=== PATIENT | female | born 1935 | race Caucasian/White ===

== ENCOUNTER 2020-05-23 12:37 | Emergency (ER) | payer MEDICARE, OTHER ==
[~2020-05-23 12:37] MED LIST: ALTACE10 MG PO; FLEXERIL 10 MG10 MG PO; IBUPROFEN600 MG PO; KEFLEX CAP 500500 MG PO; KEFLEX500 MG PO; LIPITOR TAB 2020 MG PO; MECLIZINE HCL25 MG PO; MEGACE 400400 MG/10 PO; OCUVITE PO; PERCOCET 5/325 T1 EA PO; PROTONIX40 MG PO; SYNTHROID100 MCG PO; SYNTHROID88 MCG PO; TYLENOL 500 MG500 MG PO; UNITHROID88 MCG PO; VENTOLIN HFA 66.7 GM INH; VITAMIN B-121000 MCG PO; ZANTAC150 MG PO
[2020-11-19] MEDS ORDERED: SYNTHROID112 MCG PO (10:56)
[2020-11-19] MEDS ORDERED: ARICEPT5 MG PO (10:58)
[2020-11-19] MEDS ORDERED: KLONOPIN TAB 00.5 MG PO (10:58)
[2020-11-19] MEDS ORDERED: BUSPIRONE HCL5 MG PO (10:59)
[2020-11-19] MEDS ORDERED: GALANTAMINE HBR8 MG PO (10:59)
[2020-11-19] MEDS ORDERED: SEROQUEL25 MG PO (11:00)
[2020-11-19] MEDS ORDERED: CAPLYTA42 MG PO (11:00)
[2020-11-19] MEDS ORDERED: LIPITOR10 MG PO (22:37)
== END 2020-05-23 17:55 | disposition home or self-care (01) ==
LOC: ER1 12:37
DX: S13.9XXA Sprain of joints and ligaments of unspecified parts of neck, initial encounter (principal); R51.9 Headache, unspecified; I10 Essential (primary) hypertension; X50.9XXA Other and unspecified overexertion or strenuous movements or postures, initial encounter
CPT/HCPCS: 70450; 72125; 99284

== ENCOUNTER 2020-06-01 12:43 | Emergency (ER) | payer MEDICARE, OTHER ==
[2020-06-01 14:50] LABS: HEMOGLOBIN 12.1 gm/dl (12.3-15.3); RED BLOOD COUNT 3.84 M/UL (4.00-5.10); WHITE BLOOD COUNT 8.6 K/UL (4.5-11.0)
[2020-06-01 15:21] LABS: BUN/CREATININE RATIO 18 (0-10)
[2020-11-19] MEDS ORDERED: SYNTHROID112 MCG PO (10:56)
[2020-11-19] MEDS ORDERED: ARICEPT5 MG PO (10:58)
[2020-11-19] MEDS ORDERED: KLONOPIN TAB 00.5 MG PO (10:58)
[2020-11-19] MEDS ORDERED: BUSPIRONE HCL5 MG PO (10:59)
[2020-11-19] MEDS ORDERED: GALANTAMINE HBR8 MG PO (10:59)
[2020-11-19] MEDS ORDERED: SEROQUEL25 MG PO (11:00)
[2020-11-19] MEDS ORDERED: CAPLYTA42 MG PO (11:00)
[2020-11-19] MEDS ORDERED: LIPITOR10 MG PO (22:37)
== END 2020-06-01 16:36 | disposition home or self-care (01) ==
LOC: ER1 12:43
PROVIDERS: Family Medicine
DX: I10 Essential (primary) hypertension (principal); R51.9 Headache, unspecified; F03.90 Unspecified dementia, unspecified severity, without behavioral disturbance, psychotic disturbance, mood disturbance, and anxiety; Z91.81 History of falling; E78.5 Hyperlipidemia, unspecified
CPT/HCPCS: 70450; 80053; 82550; 82553; 82962; 83735; 83874; 84439; 84443; 84484; 85025; 93005; 99284

== ENCOUNTER 2020-06-20 15:02 | Emergency (ER) | payer MEDICARE, OTHER ==
[2020-06-20] MEDS ORDERED: HYDROCODON-ACE1 EAC4 PO (17:21)
[2020-11-19] MEDS ORDERED: SYNTHROID112 MCG PO (10:56)
[2020-11-19] MEDS ORDERED: ARICEPT5 MG PO (10:58)
[2020-11-19] MEDS ORDERED: KLONOPIN TAB 00.5 MG PO (10:58)
[2020-11-19] MEDS ORDERED: BUSPIRONE HCL5 MG PO (10:59)
[2020-11-19] MEDS ORDERED: GALANTAMINE HBR8 MG PO (10:59)
[2020-11-19] MEDS ORDERED: CAPLYTA42 MG PO (11:00)
[2020-11-19] MEDS ORDERED: SEROQUEL25 MG PO (11:00)
[2020-11-19] MEDS ORDERED: LIPITOR10 MG PO (22:37)
== END 2020-06-20 17:26 | disposition home or self-care (01) ==
LOC: ER1 15:02
DX: S60.221A Contusion of right hand, initial encounter (principal); I10 Essential (primary) hypertension; W01.10XA Fall on same level from slipping, tripping and stumbling with subsequent striking against unspecified object, initial encounter; Y92.009 Unspecified place in unspecified non-institutional (private) residence as the place of occurrence of the external cause
CPT/HCPCS: 29125; 73110; 73130; 99283

== ENCOUNTER 2020-06-23 20:43 | Observation (INO) | payer MEDICARE, OTHER ==
[~2020-06-23] VITALS: Ht 157.5 cm; Wt 44.9 kg
[~2020-06-23 20:43] MED LIST changes: +HYDROCODON-ACE1 EAC4 PO
[2020-06-23 21:41] LABS: HEMOGLOBIN 12.6 gm/dl (12.3-15.3); RED BLOOD COUNT 3.95 M/UL (4.00-5.10); WHITE BLOOD COUNT 10.4 K/UL (4.5-11.0)
[2020-06-23 21:55] LABS: BUN/CREATININE RATIO 19 (0-10)
[2020-06-24 05:29] LABS: HEMOGLOBIN 11.7 gm/dl (12.3-15.3); RED BLOOD COUNT 3.73 M/UL (4.00-5.10)
[2020-06-24 05:58] LABS: BUN/CREATININE RATIO 18 (0-10)
[2020-06-24] MEDS ORDERED: KLONOPIN0.5 MG PO (08:07)
[2020-06-24] MEDS ORDERED: COZAAR100 MG PO (08:14)
[2020-06-24] MEDS ORDERED: GALANTAMINE HBR8 MG PO (08:17)
[2020-06-24] MEDS ORDERED: DONEPEZIL HCL5 MG PO (08:18)
[2020-06-24] MEDS ORDERED: PROPRANOLOL HCL10 MG PO (08:18)
[2020-06-24] MEDS ORDERED: SERTRALINE HCL50 MG PO (08:19)
[2020-06-25 03:48] LABS: BUN/CREATININE RATIO 16 (0-10)
[2020-06-26 03:15] LABS: HEMOGLOBIN 12.2 gm/dl (12.3-15.3); RED BLOOD COUNT 3.92 M/UL (4.00-5.10); WHITE BLOOD COUNT 7.3 K/UL (4.5-11.0)
[2020-06-26] MEDS ORDERED: COZAAR 25MG TAB25 MG PO (14:03)
[2020-06-26] MEDS ORDERED: OMNICEF 300 MG300 MG PO (14:05)
[2020-06-26] MEDS ORDERED: COZAAR100 MG PO (17:25)
[2020-06-26] MEDS ORDERED: PROPRANOLOL HCL10 MG PO (17:25)
[2020-11-19] MEDS ORDERED: SYNTHROID112 MCG PO (10:56)
[2020-11-19] MEDS ORDERED: ARICEPT5 MG PO (10:58)
[2020-11-19] MEDS ORDERED: KLONOPIN TAB 00.5 MG PO (10:58)
[2020-11-19] MEDS ORDERED: GALANTAMINE HBR8 MG PO (10:59)
[2020-11-19] MEDS ORDERED: BUSPIRONE HCL5 MG PO (10:59)
[2020-11-19] MEDS ORDERED: CAPLYTA42 MG PO (11:00)
[2020-11-19] MEDS ORDERED: SEROQUEL25 MG PO (11:00)
[2020-11-19] MEDS ORDERED: LIPITOR10 MG PO (22:37)
== END 2020-06-26 18:38 | disposition home or self-care (01) ==
LOC: ER1 20:43 → CDU 23:10 → MED SURG 4 23:10
PROVIDERS: Family Medicine; Internal Medicine Infectious Disease; Physician Assistant; ADMIT Internal Medicine
DX: L03.113 Cellulitis of right upper limb (principal); D64.9 Anemia, unspecified; F03.90 Unspecified dementia, unspecified severity, without behavioral disturbance, psychotic disturbance, mood disturbance, and anxiety; E89.0 Postprocedural hypothyroidism; I10 Essential (primary) hypertension; M54.2 Cervicalgia; E78.5 Hyperlipidemia, unspecified; K21.9 Gastro-esophageal reflux disease without esophagitis; M62.838 Other muscle spasm; Z20.822 Contact with and (suspected) exposure to COVID-19; Z98.890 Other specified postprocedural states; Z82.49 Family history of ischemic heart disease and other diseases of the circulatory system; Z79.899 Other long term (current) drug therapy
CPT/HCPCS: 36415; 73130; 73201; 80048; 80053; 80061; 80202; 82607; 83605; 84443; 84550; 85025; 85027; 85610; 86140; 87040; 96365; 96366; 96367; 96372; 96375; 96376; 97116-GP-CQ; 97161; 97530-GP-CQ; 99285; G0378; J0360; J1650; J2543; J3370; J7030; J7070; Q9967; U0002

== ENCOUNTER 2020-06-28 18:22 | Emergency (ER) | payer MEDICARE, OTHER ==
[~2020-06-28 18:22] MED LIST changes: +COZAAR 25MG TAB25 MG PO; +COZAAR100 MG PO; +DONEPEZIL HCL5 MG PO; +GALANTAMINE HBR8 MG PO; +KLONOPIN0.5 MG PO; +OMNICEF 300 MG300 MG PO; +PROPRANOLOL HCL10 MG PO; +SERTRALINE HCL50 MG PO
[2020-06-28 19:19] LABS: BUN/CREATININE RATIO 24 (0-10)
[2020-06-28 19:25] LABS: RED BLOOD COUNT 4.15 M/UL (4.00-5.10)
[2020-06-28 19:26] LABS: WHITE BLOOD COUNT 9.4 K/UL (4.5-11.0)
[2020-11-19] MEDS ORDERED: SYNTHROID112 MCG PO (10:56)
[2020-11-19] MEDS ORDERED: KLONOPIN TAB 00.5 MG PO (10:58)
[2020-11-19] MEDS ORDERED: ARICEPT5 MG PO (10:58)
[2020-11-19] MEDS ORDERED: GALANTAMINE HBR8 MG PO (10:59)
[2020-11-19] MEDS ORDERED: BUSPIRONE HCL5 MG PO (10:59)
[2020-11-19] MEDS ORDERED: CAPLYTA42 MG PO (11:00)
[2020-11-19] MEDS ORDERED: SEROQUEL25 MG PO (11:00)
[2020-11-19] MEDS ORDERED: LIPITOR10 MG PO (22:37)
== END 2020-06-28 20:37 | disposition other institution (70) ==
LOC: ER1 18:22
PROVIDERS: Preventive Medicine Occupational Medicine
DX: F03.90 Unspecified dementia, unspecified severity, without behavioral disturbance, psychotic disturbance, mood disturbance, and anxiety (principal)
CPT/HCPCS: 36415; 71045; 80053; 82550; 82553; 83874; 84484; 85025; 93005; 99284

== ENCOUNTER 2020-07-08 11:39 | Observation (INO) | payer MEDICARE, OTHER ==
[~2020-07-08] VITALS: Ht 165.1 cm; Wt 49.9 kg
[2020-07-08 12:27] LABS: HEMOGLOBIN 12.9 gm/dl (12.3-15.3); RED BLOOD COUNT 4.05 M/UL (4.00-5.10); WHITE BLOOD COUNT 7.9 K/UL (4.5-11.0)
[2020-07-08 13:06] LABS: BUN/CREATININE RATIO 15 (0-10)
[2020-07-08] MEDS ORDERED: KLONOPIN0.5 MG PO (22:39)
[2020-07-08] MEDS ORDERED: ACETAMINOPHEN500 MG PO (22:42)
[2020-07-09 05:24] LABS: WHITE BLOOD COUNT 8.1 K/UL (4.5-11.0)
[2020-07-09 05:52] LABS: BUN/CREATININE RATIO 17 (0-10)
[2020-07-09 05:55] LABS: RED BLOOD COUNT 3.55 M/UL (4.00-5.10)
[2020-07-10 03:43] LABS: HEMOGLOBIN 10.9 gm/dl (12.3-15.3); RED BLOOD COUNT 3.47 M/UL (4.00-5.10); WHITE BLOOD COUNT 7.1 K/UL (4.5-11.0)
[2020-07-10] MEDS ORDERED: DONEPEZIL HCL5 MG PO (11:28)
[2020-11-19] MEDS ORDERED: SYNTHROID112 MCG PO (10:56)
[2020-11-19] MEDS ORDERED: ARICEPT5 MG PO (10:58)
[2020-11-19] MEDS ORDERED: KLONOPIN TAB 00.5 MG PO (10:58)
[2020-11-19] MEDS ORDERED: BUSPIRONE HCL5 MG PO (10:59)
[2020-11-19] MEDS ORDERED: GALANTAMINE HBR8 MG PO (10:59)
[2020-11-19] MEDS ORDERED: SEROQUEL25 MG PO (11:00)
[2020-11-19] MEDS ORDERED: CAPLYTA42 MG PO (11:00)
[2020-11-19] MEDS ORDERED: LIPITOR10 MG PO (22:37)
== END 2020-07-10 15:05 | disposition home or self-care (01) ==
LOC: ER1 11:39 → MED SURG 4 17:04 → CDU 17:04 → MED SURG 4 21:35
PROVIDERS: Family Medicine; Physician Assistant; ADMIT Internal Medicine Infectious Disease
DX: F03.90 Unspecified dementia, unspecified severity, without behavioral disturbance, psychotic disturbance, mood disturbance, and anxiety (principal); E89.0 Postprocedural hypothyroidism; I10 Essential (primary) hypertension; E78.5 Hyperlipidemia, unspecified; D64.9 Anemia, unspecified; K21.9 Gastro-esophageal reflux disease without esophagitis; R07.89 Other chest pain; Z20.822 Contact with and (suspected) exposure to COVID-19; Z82.49 Family history of ischemic heart disease and other diseases of the circulatory system; Z83.3 Family history of diabetes mellitus; Z79.899 Other long term (current) drug therapy
CPT/HCPCS: 36415; 70450; 71045; 72125; 80048; 80053; 80307; 81001; 82140; 82550; 82553; 83874; 84439; 84443; 84484; 85025; 87086; 93005; 96365; 96376; 99285; G0378; G0480; J0696; U0002

== ENCOUNTER 2020-07-13 11:49 | Emergency (ER) | payer MEDICARE, OTHER ==
[~2020-07-13 11:49] MED LIST changes: +ACETAMINOPHEN500 MG PO
[2020-11-19] MEDS ORDERED: SYNTHROID112 MCG PO (10:56)
[2020-11-19] MEDS ORDERED: ARICEPT5 MG PO (10:58)
[2020-11-19] MEDS ORDERED: KLONOPIN TAB 00.5 MG PO (10:58)
[2020-11-19] MEDS ORDERED: GALANTAMINE HBR8 MG PO (10:59)
[2020-11-19] MEDS ORDERED: BUSPIRONE HCL5 MG PO (10:59)
[2020-11-19] MEDS ORDERED: SEROQUEL25 MG PO (11:00)
[2020-11-19] MEDS ORDERED: CAPLYTA42 MG PO (11:00)
[2020-11-19] MEDS ORDERED: LIPITOR10 MG PO (22:37)
== END 2020-07-13 17:22 | disposition home or self-care (01) ==
LOC: ER1 11:49
DX: F03.90 Unspecified dementia, unspecified severity, without behavioral disturbance, psychotic disturbance, mood disturbance, and anxiety (principal); E78.5 Hyperlipidemia, unspecified; I10 Essential (primary) hypertension; K21.9 Gastro-esophageal reflux disease without esophagitis; E03.9 Hypothyroidism, unspecified
CPT/HCPCS: 99283

== ENCOUNTER 2020-08-08 10:05 | Observation (INO) | payer MEDICARE ==
[~2020-08-08] VITALS: Ht 154.9 cm; Wt 49.9 kg
[2020-08-08 10:45] LABS: HEMOGLOBIN 10.5 gm/dl (12.3-15.3); RED BLOOD COUNT 3.31 M/UL (4.00-5.10); WHITE BLOOD COUNT 5.6 K/UL (4.5-11.0)
[2020-08-08 11:00] LABS: BUN/CREATININE RATIO 20 (0-10)
[2020-08-10] MEDS ORDERED: COZAAR 25MG TAB25 MG PO (13:40)
[2020-08-10] MEDS ORDERED: MULTI-VITAMIN1 EACH PO (13:41)
[2020-08-10] MEDS ORDERED: ADVIL200 M1 PO (13:41)
[2020-08-12 13:05] LABS: HEMOGLOBIN 11.7 gm/dl (12.3-15.3); RED BLOOD COUNT 3.62 M/UL (4.00-5.10); WHITE BLOOD COUNT 6.1 K/UL (4.5-11.0)
[2020-08-12 13:33] LABS: BUN/CREATININE RATIO 22 (0-10)
[2020-08-14 06:02] LABS: HEMOGLOBIN 10.5 gm/dl (12.3-15.3); RED BLOOD COUNT 3.32 M/UL (4.00-5.10); WHITE BLOOD COUNT 5.3 K/UL (4.5-11.0)
[2020-08-14 06:36] LABS: BUN/CREATININE RATIO 21 (0-10)
--- NOTE | 2020-08-14 17:57 | NUR ---
patient has been crying r/t wanting to go home with her . visited patient and had a good interaction with the patient. patient get agitated at times with her but eventually stop the agitation. nurse stayed with patient for few minutes and kept her company and patient calm and content at this time
--- NOTE | 2020-08-17 11:21 | NUR ---
PATIENT IS ALERT AND ORIENTED TODAY. ANSWERS ALL QUESTIONS APPROPRIATELY. SHE KNOWS HER NAME, BIRTHDAY, DATE, WHERE SHE LIVES, WHAT THE YEAR DAY AND MONTH IS, WHO THE PRESIDENT IS. NO CONFUSION NOTED. PATIENT IS HARD OF HEARING BECAUSE HEARING AID BATTERIES ARE ALMOST AND REQUIRES A LOUD VOICE BEFORE SHE UNDERSTANDS THE PERSON SPEAKING TO HER. CALLED THE TO BRING HER NEW BATTERIES FOR HER HEARING AID. UPON ARRIVAL THE ENTERED THE PATIENTS ROOM AND SAT WITH THE PATIENT BY THE WINDOW. DR. GIBBS ENTERED THE ROOM TO EVALUATE THE PATIENT TODAY IN THE PRESENCE OF THE . WHILE HE WAS ASSESSING THE PATIENT SHE STATED "I FEEL FINE I SLEPT GOOD LAST NIGHT AND NOTHING IS WRONG WITH ME I JUST WANT TO GO BACK HOME AND DO WHAT I LIKE TO DO EVERY DAY AND BE WITH MY PETS." DR. GIBBS ASKED THE IF HE THINKS SHE IS BETTER TODAY THAN THE PREVIOUS DAY. HE STATES "NO SHE IS NOT BETTER TODAY SHE IS WORSE TODAY THAN SHE WAS YESTERDAY ASIDE FROM IT TAKING 5 PEOPLE TO GET HER OFF OF ME YESTERDAY BECAUSE SHE BECAME SO HOSTILE WHEN I CAME TO VISIT HER. SHE CANNOT COME HOME" DR. GIBBS AND MYSELF WERE PRESENT YESTERDAY WHEN THE SITUATION HE IS REFERRING TO HAPPENED. THERE IS A SEPARATE NOTE ABOUT THIS INCIDENT. THE HAS HUGELY EXAGGERATED THE EVENTS THAT TOOK PLACE. THE PATIENT WAS NOT HELD BACK FROM HIM. SHE WAS NEVER HOSTILE. SHE WAS VISIBLY UPSET, BUT ONLY CRYING BECAUSE OF THE SITUATION SHE IS IN HAS GREATLY UPSET HER. THERE WAS NO COMBATIVENESS OR ISSUES OF VIOLENCE THAT TOOK PLACE. TODAY THE WAS CAUGHT TELLING THE PATIENT "THEY ARE GOING TO SHINE LAZERS ON YOUR HEAD WEDNESDAY AND THAT IS WHY I CANT TAKE YOU HOME. THEY DONT DO THE LAZERS ON THE WEEKEND SO YOU WILL HAVE TO WAIT UNTIL WEDNESDAY TO DO IT." HE ALSO ALSO BEEN TELLING THE TECH ABOUT IT TAKING MULTIPLE PEOPLE TO PULL HER OFF OF HIM YESTERDAY, BUT NOTED ABOVE THIS IS NOT TRUE. THE PATIENT WAS NEVER HOSTILE. THE PATIENT STATED TO HER " WHY DO YOU SAY THINGS TO MAKE ME THINK THAT IM CRAZY" DR. GIBBS IS ORDERING A COGNITIVE EVALUATION ON THE PATIENT TO RULE OUT ANY COGNITIVE IMPAIRMENTS WITH THE PATIENT. NO IMPAIRMENTS ARE VISIBLY NOTED AT THIS TIME OTHER THAN LOSS OF HEARING.
--- NOTE | 2020-08-17 11:37 | NUR ---
THIS ENTRY IS NOTED FOR August AT 1200. THE PATIENT WAS UPSET AND CRYING WANTING TO GO HOME. SHE WAS AWAITING ASSISTED PLACEMENT PER CASE MANAGEMENT. THE PATIENT DOES NOT WANT TO GO TO A ASSISTED AND DID NOT KNOW THIS WAS EVEN THE PLAN FOR HER. SHE WANTS TO "GO BACK HOME TO BE WITH HER PETS" THE PATIENT IS ALERT AND ORIENTED AND AWARE OF ALL OF HER SURROUNDS. THERE IS NO CONFUSION NOTED. SHE IS IN SOUND MIND AT THIS MOMENT IN TIME. THIS WAS VOICED TO DR. GIBBS THAT SHE WANTED TO GO HOME AND NOT TO A ASSISTED. HE EVALUATED THE PATIENT AND DETERMINED THAT SHE IS IN HER RIGHT MIND AND IS NOT CONFUSED. THE PATIENT WAS GOING TO BE DISCHARGED HOME UNTIL THE CAME AND WE TOLD THIS TO HIM. HE SAYS "HE IS NOT TAKING HER HOME SHE TRIED TO BEAT ME WITH A HAMMER" HE PROCEEDS TO SHOW US A MINISCULE SCRATCH ON HIS LEG. THE SAYS "I HAVE PAPERS ON HER THAT SAYS I DECIDE WHAT SHE DOES AND I WANT HER IN A ASSISTED" THE PATIENT WAS CRYING SO HARD AND SO UPSET THAT SHE FAINTED AND WE HAD TO MOVE HER TO THE BED. THE PRESENTED US WITH THE PAPERS AND A COPY WAS PLACED IN THE CHART. THE HOUSE MACHINE ETCHER AND CASE MANAGEMENT HAD TO GET INVOLVED. BECAUSE THE IS LEGAL GUARDIAN TH PATIENT HAD TO STAY ANOTHER NIGHT. THE PATIENT WAS NEVER HOSTILE UPON THE HUSBANDS VISITATION, SHE WAS ONLY VISIBLY UPSET AND CRYING. SHE NEVER LASHED OUT AT THE OR ANY STAFF. BECAUSE THE PATIENT WANTED TO LEAVE BUT COULD NOT LEAVE WE HAD TO GET A SITTER FOR HER SO SHE WOULD NOT ELOPE. WE CALLED THE DAUGHTER AND SHE IS NOT WILLING TO TAKE HER HOME WITH HER. THE PATIENT STATES "HE HAS ALWAYS CHEATED ON ME THAT MUST BE WHY HE IS DOING THIS TO ME" ACCOUNTING CONSULTANT SAID WE ARE GETTING AN ETHICS COMMITTEE INVOLVED IN THIS SITUATION. THE PATIENT HAS NOTHING MEDICALLY WRONG AT THIS CURRENT MOMENT.
--- NOTE | 2020-08-17 18:08 | NUR ---
PATIENT WAS OLAP EVALUATED AND THE CISTERN ROOM OPERATOR HAS CLEARED THE PATIENT TO GO HOME PENDING WHAT IS TO BECOME OF THE LEGAL GUARDIANSHIP FROM HER . PATIENT IS STILL ALERT AND ORIENTED. NO CONFUSION NOTED. NO AGITATION NOTED. THE EVALUATION PAPERS FROM [facility] ARE IN THE CHART. PER THE CISTERN ROOM OPERATOR SHE SHOULD CONTINUE TO SEE PRIMARY CARE PROVIDER TO TAKE CARE OF HEALTH NEEDS OTHERWISE THERE IS NO REASON SHE CANNOT TAKE CARE OF HERSELF AT HOME.
--- NOTE | 2020-08-19 10:37 | NUR ---
NO S/SX OF CONFUSION AT THIS TIME, AMBULATORY, ANSWER APPROPRIATELY WHEN SPOKEN TO.
[2020-08-24 08:24] LABS: HEMOGLOBIN 11.8 gm/dl (12.3-15.3); RED BLOOD COUNT 3.76 M/UL (4.00-5.10); WHITE BLOOD COUNT 6.9 K/UL (4.5-11.0)
--- NOTE | 2020-08-26 13:03 | NUR ---
PT WAS CRYING AND FRUSTRATED THAT SHE DID NOT HAVE ANY FAMILY THAT WOULD COME AND GET HER FROM THE HOSPITAL. PT REPORTED THAT HER HEAD WAS HURTING AND I ASKED ALE TO CHECK HER BLOOD PRESSURE. THE PT'S BLOOD PRESSURE WAS 178/110 AND A PRN APRESOLINE 5MG WAS ADMINISTERED THROUGH THE PT'S IV. WILL CONTINUE TO MONITOR. PT IS NOW CALM AND SITTING ON THE SIDE OF THE BED TALKING WITH ALE.
--- NOTE | 2020-09-02 20:08 | NUR ---
APPROX. 1949: EXPLAINED TO PT THAT SHE WAS BEING MOVED TO ANOTHER ROOM. PT IMMEDIATELY FREAKED OUT AND WENT INTO THE BATHROOM. PT BEGAN TO CRY, SCREAM AND REFUSE TO BE TAKEN TO A NEW ROOM. PT WOULD NOT COOPERATE AT ALL. I ALONG WITH THE SITTER (AICHA) TRIED TO CALM PT DOWN. I CALLED THE PT'S TO SEE IF HE COULD GET HER TO AGREE TO BEING MOVED. SPOKE WITH PT ON THE PHONE, BUT PT WAS STILL VERY UPSET AND UNCOOPERATIVE. ALL ATTEMPS WERE UNSUCCESFUL. APPROX. 2007: NOTIFIED FINAL INSPECTOR MOTORCYLES OF CURRENT SITUATION. PT WAS CONFUSED AND STILL REFUSING TO BE MOVED. PT WAS CRYING AND VERY UPSET. FINAL INSPECTOR MOTORCYLES (BRYON) STATED THAT THE PT COULD STAY IN HER CURRENT ROOM.
[2020-09-03 13:02] LABS: HEMOGLOBIN 12.1 gm/dl (12.3-15.3); RED BLOOD COUNT 3.7 M/UL (4.00-5.10)
--- NOTE | 2020-09-07 10:59 | NUR ---
PATIENT RECEIVED HIMANSHU COVID 19 VACCINE IN LEFT DELTOID VIA [facility] DEPT NURSE. AT BEDSIDE, CONSENT GIVEN PRIOR TO INJECTION ADMISTRATION. PT TOLERAING INJECTION WELL WITH NO ADVERSE REACTIONS NOTED AT THIS TIME.
[2020-09-08] MEDS ORDERED: QUETIAPINE FUMA25 MG PO ×2 (19:15)
[2020-09-09 07:08] LABS: HEMOGLOBIN 11.7 gm/dl (12.3-15.3); RED BLOOD COUNT 3.63 M/UL (4.00-5.10); WHITE BLOOD COUNT 6.4 K/UL (4.5-11.0)
[2020-09-13] MEDS ORDERED: QUETIAPINE FUMA25 MG PO ×2 (08:52)
[2020-09-13] MEDS ORDERED: ATIVAN 1MG TABLE1 MG PO (08:52)
--- NOTE | 2020-09-13 15:19 | NUR ---
PATIENT IS CURSING AND SCREAMING AT STAFF THAT SHE IS READY TO GO HOME. PATIENT IS RUNNING OUT OF ROOM AND INTO HALLWAY. PATIENT IS BECOMING ANGRY AND COMBATIVE, AND IS BANGING HER ARMS AGAINST BED, العراقي, AND COUCH. NOTIFIED DR. ZARATE, THIS NURSE BELIEVES PATIENT MAY BE A DANGER TO HERSELF OR OTHERS. DR. ZARATE IS ADDING ORDERS TO CPOE.
[2020-09-15 15:36] LABS: BUN/CREATININE RATIO 27 (0-10)
--- NOTE | 2020-09-16 12:13 | NUR ---
PATIENT HAS NOT HAD A SITTER SINCE DAYSHIFT ON 09/13/20.
--- NOTE | 2020-09-16 14:09 | NUR ---
1410: PATIENT WILL NOT STAY IN HER ROOM; STAFF HAS FOUND HER IN A CHAIR IN THE SHOWER AND INSIDE THE CLOSET IN HER ROOM. SHE HAS WONDERED ABOUT THE UNIT ALL DAY, DEMANDING TO GO HOME, ASKING FOR THE POLICE TO BE MADE AWARE THAT SHE IS BEIBG HELD AGAINST HER WILL. PATINET GETTING VERY AGITATED AT TIMES SLAMMING ROOM DOOR AFTER BEING INFORMED OF NOT BEING ABLE TO BE DISCHARGE TODAY OR TOMORROW. UNABLE TO REASON WITH PATIENT ON A RATIONAL BASIS.
[2020-09-18 18:45] LABS: HEMOGLOBIN 12.3 gm/dl (12.3-15.3); RED BLOOD COUNT 3.71 M/UL (4.00-5.10); WHITE BLOOD COUNT 8.1 K/UL (4.5-11.0)
[2020-11-19] MEDS ORDERED: SYNTHROID112 MCG PO (10:56)
[2020-11-19] MEDS ORDERED: KLONOPIN TAB 00.5 MG PO (10:58)
[2020-11-19] MEDS ORDERED: ARICEPT5 MG PO (10:58)
[2020-11-19] MEDS ORDERED: GALANTAMINE HBR8 MG PO (10:59)
[2020-11-19] MEDS ORDERED: BUSPIRONE HCL5 MG PO (10:59)
[2020-11-19] MEDS ORDERED: SEROQUEL25 MG PO (11:00)
[2020-11-19] MEDS ORDERED: CAPLYTA42 MG PO (11:00)
[2020-11-19] MEDS ORDERED: LIPITOR10 MG PO (22:37)
== END 2020-09-19 16:26 | disposition other institution (70) ==
LOC: ER1 10:05 → M/S 08-10 13:12 → CDU 08-10 13:12 → M/S 08-10 16:38 → CDU 08-18 19:44 → M/S 08-18 19:47
PROVIDERS: Emergency Medicine; Family Medicine; Internal Medicine; ADMIT Internal Medicine Infectious Disease
DX: F03.90 Unspecified dementia, unspecified severity, without behavioral disturbance, psychotic disturbance, mood disturbance, and anxiety (principal); R45.1 Restlessness and agitation; F91.9 Conduct disorder, unspecified; F22 Delusional disorders; R45.850 Homicidal ideations; I10 Essential (primary) hypertension; E03.9 Hypothyroidism, unspecified; E78.5 Hyperlipidemia, unspecified; D64.9 Anemia, unspecified; F41.9 Anxiety disorder, unspecified; Z79.899 Other long term (current) drug therapy; Z20.822 Contact with and (suspected) exposure to COVID-19
CPT/HCPCS: 36415; 71045; 72125; 80048; 80053; 80307; 81001; 82550; 82553; 82962; 83605; 83735; 84100; 84439; 84443; 84484; 85025; 87040; 93005; 96372; 96374; 96376; 97161; 97166; 99285; G0378; J0360; J1650; J3486; U0002

== ENCOUNTER 2020-11-13 10:46 | Emergency (ER) | payer MEDICARE ==
[~2020-11-13 10:46] MED LIST changes: +ADVIL200 M1 PO; +ATIVAN 1MG TABLE1 MG PO; +MULTI-VITAMIN1 EACH PO; +QUETIAPINE FUMA25 MG PO
[2020-11-13 12:48] LABS: HEMOGLOBIN 11.3 gm/dl (12.3-15.3); RED BLOOD COUNT 3.49 M/UL (4.00-5.10); WHITE BLOOD COUNT 8.1 K/UL (4.5-11.0)
[2020-11-13 13:20] LABS: BUN/CREATININE RATIO 14 (0-10)
[2020-11-19] MEDS ORDERED: SYNTHROID112 MCG PO (10:56)
[2020-11-19] MEDS ORDERED: ARICEPT5 MG PO (10:58)
[2020-11-19] MEDS ORDERED: KLONOPIN TAB 00.5 MG PO (10:58)
[2020-11-19] MEDS ORDERED: GALANTAMINE HBR8 MG PO (10:59)
[2020-11-19] MEDS ORDERED: BUSPIRONE HCL5 MG PO (10:59)
[2020-11-19] MEDS ORDERED: CAPLYTA42 MG PO (11:00)
[2020-11-19] MEDS ORDERED: SEROQUEL25 MG PO (11:00)
[2020-11-19] MEDS ORDERED: LIPITOR10 MG PO (22:37)
== END 2020-11-13 15:10 | disposition home or self-care (01) ==
LOC: ER1 10:46
DX: R60.0 Localized edema (principal); E03.9 Hypothyroidism, unspecified
CPT/HCPCS: 71045; 80053; 83880; 85025; 99283

== ENCOUNTER 2020-11-16 14:52 | Emergency (ER) | payer MEDICARE ==
[2020-11-16 15:13] LABS: HEMOGLOBIN 11.2 gm/dl (12.3-15.3); RED BLOOD COUNT 3.49 M/UL (4.00-5.10); WHITE BLOOD COUNT 6.4 K/UL (4.5-11.0)
[2020-11-19] MEDS ORDERED: SYNTHROID112 MCG PO (10:56)
[2020-11-19] MEDS ORDERED: KLONOPIN TAB 00.5 MG PO (10:58)
[2020-11-19] MEDS ORDERED: ARICEPT5 MG PO (10:58)
[2020-11-19] MEDS ORDERED: GALANTAMINE HBR8 MG PO (10:59)
[2020-11-19] MEDS ORDERED: BUSPIRONE HCL5 MG PO (10:59)
[2020-11-19] MEDS ORDERED: CAPLYTA42 MG PO (11:00)
[2020-11-19] MEDS ORDERED: SEROQUEL25 MG PO (11:00)
[2020-11-19] MEDS ORDERED: LIPITOR10 MG PO (22:37)
== END 2020-11-16 18:00 | disposition home or self-care (01) ==
LOC: ER1 14:52
PROVIDERS: Family Medicine
DX: F03.91 Unspecified dementia, unspecified severity, with behavioral disturbance (principal); I10 Essential (primary) hypertension; E87.6 Hypokalemia
CPT/HCPCS: 71045; 80053; 82550; 82553; 83874; 84439; 84443; 84484; 85025; 93005; 99284

== ENCOUNTER 2020-11-18 11:11 | Emergency (ER) | payer MEDICARE ==
[~2020-11-18] VITALS: Ht 157.5 cm; Wt 54.0 kg
[2020-11-18 12:07] LABS: HEMOGLOBIN 11.6 gm/dl (12.3-15.3); RED BLOOD COUNT 3.59 M/UL (4.00-5.10); WHITE BLOOD COUNT 6.1 K/UL (4.5-11.0)
[2020-11-19] MEDS ORDERED: SYNTHROID112 MCG PO (10:56)
[2020-11-19] MEDS ORDERED: KLONOPIN TAB 00.5 MG PO (10:58)
[2020-11-19] MEDS ORDERED: ARICEPT5 MG PO (10:58)
[2020-11-19] MEDS ORDERED: BUSPIRONE HCL5 MG PO (10:59)
[2020-11-19] MEDS ORDERED: GALANTAMINE HBR8 MG PO (10:59)
[2020-11-19] MEDS ORDERED: CAPLYTA42 MG PO (11:00)
[2020-11-19] MEDS ORDERED: SEROQUEL25 MG PO (11:00)
[2020-11-19] MEDS ORDERED: LIPITOR10 MG PO (22:37)
== END 2020-11-18 13:05 | disposition home or self-care (01) ==
LOC: ER1 11:11
PROVIDERS: Physician Assistant
DX: R55 Syncope and collapse (principal); R53.1 Weakness
CPT/HCPCS: 70450; 71045; 80053; 81001; 82550; 82553; 83874; 84484; 85025; 87077; 87086; 87186; 93005; 99285

== ENCOUNTER 2020-12-10 11:23 | Emergency (ER) | payer MEDICARE ==
[~2020-12-10 11:23] MED LIST changes: +ARICEPT5 MG PO; +BUSPIRONE HCL5 MG PO; +CAPLYTA42 MG PO; +KLONOPIN TAB 00.5 MG PO; +LIPITOR10 MG PO; +SEROQUEL25 MG PO; +SYNTHROID112 MCG PO
[2020-12-10] MEDS ORDERED: CORTAID28 GM TP (11:59)
== END 2020-12-10 12:06 | disposition home or self-care (01) ==
LOC: ER1 11:23
DX: R21 Rash and other nonspecific skin eruption (principal)
CPT/HCPCS: 99282

== ENCOUNTER 2021-05-23 14:45 | Emergency (ER) | payer MEDICARE ==
[~2021-05-23 14:45] MED LIST changes: +CORTAID28 GM TP
== END 2021-05-24 10:00 | disposition home or self-care (01) ==
LOC: ER1 14:45
DX: S09.90XA Unspecified injury of head, initial encounter (principal); E03.9 Hypothyroidism, unspecified; W19.XXXA Unspecified fall, initial encounter
CPT/HCPCS: 70450; 82550; 82553; 83874; 84484; 93005; 99284

== ENCOUNTER 2021-07-26 09:27 | Emergency (ER) | payer MEDICARE ==
[2021-07-26] MEDS ORDERED: ENDOCET 5-3251 EACH PO (10:01)
== END 2021-07-26 10:51 | disposition home or self-care (01) ==
LOC: ER1 09:27
DX: S42.211A Unspecified displaced fracture of surgical neck of right humerus, initial encounter for closed fracture (principal); W01.0XXA Fall on same level from slipping, tripping and stumbling without subsequent striking against object, initial encounter; Y92.009 Unspecified place in unspecified non-institutional (private) residence as the place of occurrence of the external cause
CPT/HCPCS: 73030; 96374; 96375; 99283; J2270; J2405